=== PATIENT | male | born 1965 | race American Indian/Alaskan Native ===

== ENCOUNTER 2018-11-19 00:26 | Emergency (ER) | payer SELFPAY ==
[2018-11-19 00:36] VITALS: BP 143/98
--- NOTE | 2018-11-19 01:09 | XRay Report ---
RIGHT KNEE 3 VIEWS INDICATION / CLINICAL INFORMATION: Right knee pain after fall 3 hours ago. COMPARISON: None available. FINDINGS: BONES and JOINT(S): No acute fracture or subluxation. Mild osteoarthritis is present along the medial and patellofemoral compartments. SOFT TISSUES: No significant abnormality. ADDITIONAL FINDINGS: None. IMPRESSION: No acute findings. Signer Name: Joe Lin MD Signed: 11/19/2018 1:05 AM Workstation Name: [id number]
[2018-11-19] MEDS ORDERED: TORADOL IM ONE (01:59)
--- NOTE | 2018-11-19 04:14 | Emergency Department Report ---
ED Lower Extremity HPI - General Chief Complaint: Extremity Injury, Lower Stated Complaint: KNEE PAIN Time Seen by Provider: 11/19/18 01:58 Source: patient Mode of arrival: Ambulatory Limitations: No Limitations - History of Present Illness Initial Comments: pt states he twisted his knee while playing in yard today , pain is 4/10 aching no swelling pt remain ambulatory with steady gait no abrasion no laceration no bleeding MD Complaint: knee injury Onset/Timin -: days(s) Injury: Knee: Right Type of Injury: hyperextension Place: home Severity: moderate Severity scale (0 -10): 5 Improves With: nothing Worsens With: weight bearing, movement, palpation Context: fall, running Associated Symptoms: snap/pop sensation, ambulatory. denies: numbness, tingling - Related Data Previous Rx's Medication Instructions Recorded Last Taken Type Cyclobenzaprine [Flexeril] 5 mg PO TID PRN #14 tablet 01/19/13 Unknown Rx traMADol [Ultram 50 MG tab] 50 mg PO Q4HR PRN #14 tablet 01/19/13 Unknown Rx Acetaminophen [Acetaminophen TAB] 1,000 mg PO Q6HR #30 tablet 11/19/18 Unknown Rx Allergies Allergy/AdvReac Type Severity Reaction Status Date / Time No Known Allergies Allergy Unverified 01/19/13 07:31 ED Review of Systems ROS: Stated complaint: KNEE PAIN Other details as noted in HPI Constitutional: denies: chills, fever Eyes: denies: eye pain, eye discharge, vision change ENT: denies: ear pain, throat pain Respiratory: no symptoms reported Cardiovascular: denies: chest pain, palpitations Endocrine: no symptoms reported Gastrointestinal: denies: abdominal pain, nausea, diarrhea Genitourinary: denies: urgency, dysuria Musculoskeletal: other (right anterial knee pain ). denies: back pain, joint swelling, arthralgia, myalgia Skin: denies: rash, lesions Neurological: denies: headache, weakness, paresthesias Psychiatric: denies: anxiety, depression Hematological/Lymphatic: denies: easy bleeding, easy bruising ED Past Medical Hx - Past Medical History Previous Medical History?: No - Surgical History Past Surgical History?: No - Social History Smoking Status: Current Every Day Smoker Substance Use Type: Alcohol - Medications Home Medications: Home Medications Medication Instructions Recorded Confirmed Last Taken Type Cyclobenzaprine [Flexeril] 5 mg PO TID PRN #14 tablet 01/19/13 Unknown Rx traMADol [Ultram 50 MG tab] 50 mg PO Q4HR PRN #14 tablet 01/19/13 Unknown Rx Acetaminophen [Acetaminophen TAB] 1,000 mg PO Q6HR #30 tablet 11/19/18 Unknown Rx ED Physical Exam - General Limitations: No Limitations General appearance: alert, in no apparent distress - Head Head exam: Present: atraumatic, normocephalic, normal inspection - Eye Eye exam: Present: normal appearance, PERRL, EOMI Pupils: Present: normal accommodation - ENT ENT exam: Present: mucous membranes moist - Neck Neck exam: Present: normal inspection - Respiratory Respiratory exam: Present: normal lung sounds bilaterally. Absent: respiratory distress - Cardiovascular Cardiovascular Exam: Present: regular rate, normal rhythm. Absent: systolic murmur, diastolic murmur, rubs, gallop - GI/Abdominal GI/Abdominal exam: Present: soft, normal bowel sounds - Rectal Rectal exam: Present: deferred - Extremities Exam Extremities exam: Present: normal inspection, full ROM, tenderness (right anterior knee ), normal capillary refill, pedal edema, joint swelling. Absent: calf tenderness - Expanded Lower Extremity Exam Right Knee exam: Present: full ROM, tenderness, pain w/ pronation/supination, full knee extension. Absent: swelling, abrasion, laceration, ecchymosis, deformity, crepidus, dislocation, erythema, effusion, posterior draw sign, pain/laxity with valgus, pain/laxity with varus Lower Leg exam: Present: normal inspection, full ROM Ankle exam: Present: normal inspection, full ROM Foot/Toe exam: Present: normal inspection, full ROM Neuro vascular tendon exam: Present: no vascular compromise, pulse deficit Gait: Positive: observed and normal - Back Exam Back exam: Present: normal inspection, full ROM. Absent: tenderness, CVA tenderness (R), CVA tenderness (L), muscle spasm, paraspinal tenderness, vertebral tenderness, rash noted - Neurological Exam Neurological exam: Present: alert, oriented X3, CN II-XII intact, normal gait, reflexes normal. Absent: abnormal gait, motor sensory deficit - Psychiatric Psychiatric exam: Present: normal affect, normal mood - Skin Skin exam: Present: warm, dry, intact, normal color. Absent: rash ED Course Vital Signs 11/19/18 00:29 Temperature 97.8 F Pulse Rate 94 H Respiratory 18 Rate Blood Pressure 143/98 O2 Sat by Pulse 97 Oximetry ED Lower Extremity MDM - Radiology Data Radiology results: report reviewed, image reviewed Ordering Physician: SHAHANA ZARATE NP Date of Service: 11/19/18 Procedure(s): CT abdomen pelvis wo con Accession Number(s): [id number] cc: SHAHANA ZARATE NP CT ABDOMEN AND PELVIS WITHOUT CONTRAST HISTORY: Abdominal pain. Right pelvic pain. History of renal stones. COMPARISON: Acute abdominal series from 07/07/2016. TECHNIQUE: Axial, coronal and sagittal CT imaging of the abdomen and pelvis was performed without contrast. Lack of intravenous contrast limits evaluation of the vascular and solid organs. All CT scans at this location are performed using CT dose reduction for ALARA by means of automated exposure control. FINDINGS: Motion artifact limits portions of this exam. LOWER CHEST: No significant abnormality. LIVER: No significant abnormality. BILIARY: No significant abnormality. PANCREAS: No significant abnormality. SPLEEN: No significant abnormality. ADRENALS: No significant abnormality. KIDNEYS AND URETERS: A right UPJ stone measures 3 mm with secondary mild hydronephrosis. No additional stones are seen. The left renal collecting system and ureter are normal in caliber. No suspicious renal lesions. GI TRACT: No significant abnormality of the stomach or small bowel. There is colonic diverticulosis without evidence of diverticulitis. Unremarkable appendix. PERITONEUM: No free fluid. No free air. No fluid collection. LYMPH NODES: No significant adenopathy. VASCULATURE: No significant abnormality. URINARY BLADDER: No significant abnormality. REPRODUCTIVE ORGANS: No significant abnormality. ADDITIONAL FINDINGS: None. SKELETAL SYSTEM: No significant abnormality. IMPRESSION: 1. 3 mm right UPJ stone with associated mild hydronephrosis. 2. Colonic diverticulosis without evidence of diverticulitis. Signer Name: Joe Lin MD Signed: 11/19/2018 2:34 AM Workstation Name: [id number] Transcribed By: JV Dictated By: Joe Lin MD Electronically Authenticated By: Joe Lin MD Signed Date/Time: 11/19/18233 DD/ 0 TD/TT: - Medical Decision Making this is a knee strain , pt remains ambulator plan crutches acewrap pt will folllow up pcp in 2-3 days pt verbalized agreement and understanding of same. Critical care attestation.: If time is entered above; I have spent that time in minutes in the direct care of this critically ill patient, excluding procedure time. ED Disposition Clinical Impression: Knee strain Qualifiers: Encounter type: initial encounter Laterality: right Qualified Code(s): S86.911A - Strain of unspecified muscle(s) and tendon(s) at lower leg level, right leg, initial encounter Disposition: TO HOME OR SELFCARE Is pt being admited?: No Does the pt Need Aspirin: No Condition: Stable Instructions: Knee Pain (ED) Prescriptions: Acetaminophen [Acetaminophen TAB] 1,000 mg PO Q6HR #30 tablet Referrals: MAHSA ROLAND MD [Staff Physician] - 3-5 Days Forms: Work/School Release Form(ED) Time of Disposition: 04:27
== END 2018-11-19 02:05 | disposition home or self-care (01) ==
LOC: ED 00:26
DX: S86.911A Strain of unspecified muscle(s) and tendon(s) at lower leg level, right leg, initial encounter (principal); F17.200 Nicotine dependence, unspecified, uncomplicated; X50.1XXA Overexertion from prolonged static or awkward postures, initial encounter; Y93.89 Activity, other specified; Y92.89 Other specified places as the place of occurrence of the external cause; Y99.8 Other external cause status
CPT/HCPCS: 73562; 99283; J1885

== ENCOUNTER 2019-08-05 11:23 | Emergency (ER) | payer SELFPAY ==
--- NOTE | 2019-08-05 12:39 | XRay Report ---
CHEST PA AND LATERAL VIEWS INDICATION: SOB. COMPARISON: None FINDINGS: Support devices: None Heart: Normal Lungs/Pleura: No acute pulmonary or pleural findings. IMPRESSION: 1. No significant abnormality. Signer Name: Stanley Bailey MD Signed: 08/05/2019 12:35 PM Workstation Name: [id number]
--- NOTE | 2019-08-05 12:54 | Emergency Department Report ---
- General Chief Complaint: Upper Respiratory Infection Stated Complaint: SOB Time Seen by Provider: 08/05/19 12:50 Source: patient Mode of arrival: Ambulatory Limitations: No Limitations - History of Present Illness Initial Comments: pt is a 54 yo male who presents to the ED with c/o productive cough that began yesterday. states that he has mucus production. states that after a frequent coughing episode he has SOB, but no SOB currrently. he denies any fever, n/v/d, CP, leg swelling. no pMHx. no allergies to meds. pt is a smoker 1/2 ppd. he denies any recent travel or known sick contacts. he denies any contact with COVID 19 positive person. - Related Data Previous Rx's Medication Instructions Recorded Last Taken Type Cyclobenzaprine [Flexeril] 5 mg PO TID PRN #14 tablet 01/19/13 Unknown Rx traMADoL [Ultram 50 MG tab] 50 mg PO Q4HR PRN #14 tablet 01/19/13 Unknown Rx Acetaminophen [Acetaminophen TAB] 1,000 mg PO Q6HR #30 tablet 11/19/18 Unknown Rx Azithromycin [Zithromax TAB] 250 mg PO QDAY 5 Days #6 tablet 08/05/19 Unknown Rx Benzonatate [Tessalon Perles] 100 mg PO Q8HR PRN #14 capsule 08/05/19 Unknown Rx Prednisone [predniSONE 10 mg 10 mg PO .TAPER #1 tab.ds.pk 08/05/19 Unknown Rx (6-Day Pack, 21 Tabs)] Allergies Allergy/AdvReac Type Severity Reaction Status Date / Time No Known Allergies Allergy Unverified 01/19/13 07:31 ED Review of Systems ROS: Stated complaint: SOB Other details as noted in HPI Comment: All other systems reviewed and negative ED Past Medical Hx - Past Medical History Previous Medical History?: No - Surgical History Past Surgical History?: Yes Hx Appendectomy: Yes - Social History Smoking Status: Never Smoker Substance Use Type: None - Medications Home Medications: Home Medications Medication Instructions Recorded Confirmed Last Taken Type Cyclobenzaprine [Flexeril] 5 mg PO TID PRN #14 tablet 01/19/13 Unknown Rx traMADoL [Ultram 50 MG tab] 50 mg PO Q4HR PRN #14 tablet 01/19/13 Unknown Rx Acetaminophen [Acetaminophen TAB] 1,000 mg PO Q6HR #30 tablet 11/19/18 Unknown Rx Azithromycin [Zithromax TAB] 250 mg PO QDAY 5 Days #6 tablet 08/05/19 Unknown Rx Benzonatate [Tessalon Perles] 100 mg PO Q8HR PRN #14 capsule 08/05/19 Unknown Rx Prednisone [predniSONE 10 mg 10 mg PO .TAPER #1 tab.ds.pk 08/05/19 Unknown Rx (6-Day Pack, 21 Tabs)] ED Physical Exam - General Limitations: No Limitations General appearance: alert, in no apparent distress - Head Head exam: Present: atraumatic, normocephalic - Eye Eye exam: Present: normal appearance - ENT ENT exam: Present: mucous membranes moist - Respiratory Respiratory exam: Present: normal lung sounds bilaterally. Absent: respiratory distress, wheezes, rales, rhonchi, stridor, chest wall tenderness, accessory muscle use, decreased breath sounds, prolonged expiratory - Cardiovascular Cardiovascular Exam: Present: regular rate, normal rhythm, normal heart sounds. Absent: systolic murmur, diastolic murmur, rubs, gallop - Neurological Exam Neurological exam: Present: alert, oriented X3 - Psychiatric Psychiatric exam: Present: normal affect, normal mood - Skin Skin exam: Present: warm, dry, intact, normal color ED Course Vital Signs 08/05/19 08/05/19 11:26 13:13 Temperature 98.1 F Pulse Rate 79 66 Respiratory 16 18 Rate Blood Pressure 156/104 Blood Pressure 169/101 [Left] O2 Sat by Pulse 99 100 Oximetry ED Medical Decision Making - Lab Data Vital Signs 08/05/19 08/05/19 11:26 13:13 Temperature 98.1 F Pulse Rate 79 66 Respiratory 16 18 Rate Blood Pressure 156/104 Blood Pressure 169/101 [Left] O2 Sat by Pulse 99 100 Oximetry - Radiology Data Radiology results: report reviewed CHEST PA AND LATERAL VIEWS INDICATION: SOB. COMPARISON: None FINDINGS: Support devices: None Heart: Normal Lungs/Pleura: No acute pulmonary or pleural findings. IMPRESSION: 1. No significant abnormality. Signer Name: Stanley Bailey MD Signed: 08/05/2019 12:35 PM Workstation Name: [id number] Transcribed By: TM Dictated By: Stanley Bailey MD Electronically Authenticated By: Stanley Bailey MD Signed Date/Time: 08/05/19 1235 DD/ 1234 TD/TT: - Medical Decision Making pt is a 54 yo male who presents to the ED with c/o productive cough that began yesterday. states that he has mucus production. states that after a frequent coughing episode he has SOB, but no SOB currrently. he denies any fever, n/v/d, CP, leg swelling. no pMHx. no allergies to meds. pt is a smoker 1/2 ppd. he denies any recent travel or known sick contacts. he denies any contact with COVID 19 positive person. Vitals with elevated blood pressure, patient is not having any symptoms related to blood pressure, will have pt follow up with PCP for further evaluation and management. cxr: 1. No significant abnormality. Lungs are clear bilaterally on exam, no wheezing, no rales, no rhonchi. No hypoxia, afebrile, no tachycardia. very low risk based on wells criteria for PE. Due to the fact that patient is a current every day smoker and has had a change in sputum production, will cover patient with antibiotics for acute bronchitis. Patient given azithromycin, Tessalon Perles, prednisone taper. Advised patient please take medication as prescribed. stop smoking, there are several severe rodent exterminator effects of smoking. follow up with a primary care doctor. return to the emergency room for any new or worsening symptoms. please see a primary care doctor regarding the elevation in your blood pressure during todays visit, keep a blood pressure log and take this to a primary care doctor, eat a low sodium (salt) diet, increase your water intake, and incorporate 30 minutes of daily exercise Critical care attestation.: If time is entered above; I have spent that time in minutes in the direct care of this critically ill patient, excluding procedure time. ED Disposition Clinical Impression: Elevated blood pressure reading, Tobacco abuse Acute bronchitis Qualifiers: Bronchitis organism: unspecified organism Qualified Code(s): J20.9 - Acute bronchitis, unspecified Disposition: DC-01 TO HOME OR SELFCARE Is pt being admited?: No Does the pt Need Aspirin: No Condition: Stable Instructions: Acute Bronchitis (ED) Additional Instructions: please take medication as prescribed. stop smoking, there are several severe rodent exterminator effects of smoking. follow up with a primary care doctor. return to the emergency room for any new or worsening symptoms. please see a primary care doctor regarding the elevation in your blood pressure during todays visit, keep a blood pressure log and take this to a primary care doctor, eat a low sodium (salt) diet, increase your water intake, and incorporate 30 minutes of daily exercise Prescriptions: Prednisone [predniSONE 10 mg (6-Day Pack, 21 Tabs)] 10 mg PO .TAPER #1 tab.ds.pk Benzonatate [Tessalon Perles] 100 mg PO Q8HR PRN #14 capsule PRN Reason: cough Azithromycin [Zithromax TAB] 250 mg PO QDAY 5 Days #6 tablet Referrals: OJ HAYWOOD MD [Staff Physician] - 3-5 Days [facility] [Provider Group] - 3-5 Days [facility] [Provider Group] - 3-5 Days [facility] [Outside] - 3-5 Days [facility] [Outside] - 3-5 Days Time of Disposition: 12:53 Print Language: YAKUT
[2019-08-05 13:14] VITALS: BP 169/101
== END 2019-08-05 13:16 | disposition home or self-care (01) ==
LOC: ED 11:23
DX: R03.0 Elevated blood-pressure reading, without diagnosis of hypertension (principal); J20.9 Acute bronchitis, unspecified; F17.200 Nicotine dependence, unspecified, uncomplicated; Z90.49 Acquired absence of other specified parts of digestive tract; Z79.2 Long term (current) use of antibiotics; Z79.899 Other long term (current) drug therapy
CPT/HCPCS: 71046

== ENCOUNTER 2021-02-27 07:28 | Emergency (ER) | payer SELFPAY ==
[2021-02-27 07:38] VITALS: BP 181/104
[2021-02-27] MEDS ORDERED: HYDROcodone/ACETAMINOPHEN 5-325 MG TAB PO ONE (08:16)
[2021-02-27] MEDS ORDERED: KETOROLAC 10 MG TAB PO ONE (08:16)
--- NOTE | 2021-02-27 08:22 | Emergency Department Report ---
ED General Adult HPI - General Chief complaint: Extremity Injury, Upper Stated complaint: lt elbow pain injury Time Seen by Provider: 02/27/21 07:35 Source: patient Mode of arrival: Ambulatory Limitations: No Limitations - History of Present Illness Initial comments: 55-year-old -Wel[place] male patient presents with complaints of left elbow pain x2 days. 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 He rates his pain as a 8/10 in severity. Patient reports good ease daughters are not helping with his pain. He states there is some swelling and difficulty moving the elbow due to the pain. He states he had some tingling down into his fingers that resolved after a few minutes. -: Sudden Severity scale (0 -10): 10 - Related Data Previous Rx's Medication Instructions Recorded Last Taken Type Cyclobenzaprine [Flexeril] 5 mg PO TID PRN #14 tablet 01/19/13 Unknown Rx traMADoL [Ultram 50 MG tab] 50 mg PO Q4HR PRN #14 tablet 01/19/13 Unknown Rx Acetaminophen [Acetaminophen TAB] 1,000 mg PO Q6HR #30 tablet 11/19/18 Unknown Rx Azithromycin [Zithromax TAB] 250 mg PO QDAY 5 Days #6 tablet 08/05/19 Unknown Rx Benzonatate [Tessalon Perles] 100 mg PO Q8HR PRN #14 capsule 08/05/19 Unknown Rx Prednisone [predniSONE 10 mg 10 mg PO .TAPER #1 tab.ds.pk 08/05/19 Unknown Rx (6-Day Pack, 21 Tabs)] Diclofenac 1% [Diclofenac 1% 1 gm TP QID PRN 14 Days #1 tube 02/27/21 Unknown Rx topical gel] Naproxen [Naprosyn] 500 mg PO BID PRN #20 tablet 02/27/21 Unknown Rx Allergies Allergy/AdvReac Type Severity Reaction Status Date / Time No Known Allergies Allergy Verified 02/27/21 07:33 ED Review of Systems ROS: Stated complaint: lt elbow pain injury Other details as noted in HPI Constitutional: denies: fever Musculoskeletal: joint swelling, arthralgia Skin: denies: change in color Neurological: paresthesias ED Past Medical Hx - Past Medical History Previous Medical History?: No - Surgical History Hx Appendectomy: Yes - Social History Smoking Status: Never Smoker Substance Use Type: None - Medications Home Medications: Home Medications Medication Instructions Recorded Confirmed Last Taken Type Cyclobenzaprine [Flexeril] 5 mg PO TID PRN #14 tablet 01/19/13 Unknown Rx traMADoL [Ultram 50 MG tab] 50 mg PO Q4HR PRN #14 tablet 01/19/13 Unknown Rx Acetaminophen [Acetaminophen TAB] 1,000 mg PO Q6HR #30 tablet 11/19/18 Unknown Rx Azithromycin [Zithromax TAB] 250 mg PO QDAY 5 Days #6 tablet 08/05/19 Unknown Rx Benzonatate [Tessalon Perles] 100 mg PO Q8HR PRN #14 capsule 08/05/19 Unknown Rx Prednisone [predniSONE 10 mg 10 mg PO .TAPER #1 tab.ds.pk 08/05/19 Unknown Rx (6-Day Pack, 21 Tabs)] Diclofenac 1% [Diclofenac 1% 1 gm TP QID PRN 14 Days #1 tube 02/27/21 Unknown Rx topical gel] Naproxen [Naprosyn] 500 mg PO BID PRN #20 tablet 02/27/21 Unknown Rx ED Physical Exam - General Limitations: No Limitations General appearance: alert, in no apparent distress - Head Head exam: Present: atraumatic - Eye Eye exam: Present: normal appearance - Respiratory Respiratory exam: Absent: respiratory distress - Cardiovascular Cardiovascular Exam: Present: regular rate - Expanded Upper Extremity Exam Left Upper Arm exam: Present: normal inspection Elbow exam: Present: tenderness (Noted over lateral radial head with mild swelling) Forearm Wrist exam: Present: normal inspection Hand Wrist exam: Present: normal inspection Neuro motor exam: Present: wrist extension intact Vascular: Present: normal capillary refill. Absent: pulse deficit radial art, pulse deficit ulnar art - Neurological Exam Neurological exam: Present: alert, oriented X3, normal gait - Psychiatric Psychiatric exam: Present: normal affect, normal mood ED Course Vital Signs 02/27/21 07:37 Temperature 98.6 F Pulse Rate 64 Respiratory 18 Rate Blood Pressure 181/104 [Right] O2 Sat by Pulse 100 Oximetry ED Medical Decision Making - Radiology Data Radiology results: report reviewed LEFT ELBOW 3 VIEW(S) INDICATION / CLINICAL INFORMATION: pain and swelling over lateral radial head COMPARISON: None available. FINDINGS: BONES / JOINT(S): No acute fracture or subluxation. No significant arthritis. SOFT TISSUES: No significant abnormality. ADDITIONAL FINDINGS: None. - Medical Decision Making 55-year-old -[place]el[place] male patient presents with complaints of left elbow pain x2 days. 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 He rates his pain as a 8/10 in severity. Patient reports good ease daughters are not helping with his pain. He states there is some swelling and difficulty moving the elbow due to the pain. He states he had some tingling down into his fingers that resolved after a few minutes. Extremities negative for any acute bony abnormalities. Will treat for elbow sprain/bone contusion with rice method and NSAIDs. Blood pressure elevated, however patient has history of hypertension and states he has not taking his blood pressure medications this morning. He denies any neurological symptoms. Recommend follow-up with orthopedics as needed. Discussed in detail signs and symptoms that should prompt immediate return to the ER with patient who verbalizes understanding. Critical care attestation.: If time is entered above; I have spent that time in minutes in the direct care of this critically ill patient, excluding procedure time. ED Disposition Clinical Impression: Elbow pain Disposition: 01 HOME / SELF CARE / HOMELESS Is pt being admited?: No Condition: Stable Instructions: Elbow Contusion Prescriptions: Diclofenac 1% [Diclofenac 1% topical gel] 1 gm TP QID PRN 14 Days #1 tube PRN Reason: pain Naproxen [Naprosyn] 500 mg PO BID PRN #20 tablet PRN Reason: pain Referrals: PRIMARY CARE, [Primary Care Provider] - 3-5 Days [facility] [Provider Group] - as needed Forms: Work/School Release Form(ED)
--- NOTE | 2021-02-27 08:42 | XRay Report ---
LEFT ELBOW 3 VIEW(S) INDICATION / CLINICAL INFORMATION: pain and swelling over lateral radial head COMPARISON: None available. FINDINGS: BONES / JOINT(S): No acute fracture or subluxation. No significant arthritis. SOFT TISSUES: No significant abnormality. ADDITIONAL FINDINGS: None. Signer Name: Jluis Valenzuela MD Signed: 02/27/2021 8:38 AM Workstation Name: [id number]
== END 2021-02-27 09:08 | disposition home or self-care (01) ==
LOC: ED 07:28
DX: M25.522 Pain in left elbow (principal); Z90.49 Acquired absence of other specified parts of digestive tract; W22.8XXA Striking against or struck by other objects, initial encounter; Y93.89 Activity, other specified; Y92.89 Other specified places as the place of occurrence of the external cause; Y99.8 Other external cause status
CPT/HCPCS: 99283